=== PATIENT | female | born 1955 | race Caucasian/White ===

== ENCOUNTER 2020-10-29 13:52 | Outpatient (REF) | payer OTHER, SELFPAY ==
[2020-10-29 15:54] VITALS: BP 115/56; PULSE 78; RESP 16; TEMP 36.8; O2SAT 98
[2020-10-29 15:55] VITALS: BMI 21.7
== END 2020-10-29 13:53 | disposition home or self-care (01) ==
LOC: HO.MS 13:52
PROVIDERS: PCP Nurse Practitioner Family; Visit Provider Ophthalmology
PROC: (CPT 67800; principal; 2020-10-29 17:10)
DX: H00.11 Chalazion right upper eyelid (principal); Z83.511 Family history of glaucoma; Z87.891 Personal history of nicotine dependence
CPT/HCPCS: 67800